=== PATIENT | female | born 1975 | race Two or more races ===

== ENCOUNTER 2025-01-26 10:26 | Outpatient (AMB) | payer MEDICAID, SELFPAY ==
--- NOTE | 2025-01-26 10:37 | AMB.GYNCLNOT ---
Vital Signs 01/26/25 10:38 Weight 62.709 kg Weight Measurement Method Standing Scale BP 123/84 Blood Pressure Source Automatic Cuff Blood Pressure Location Left Upper Arm Position Sitting Respiration 18 Pulse 78 Pulse Source Monitor Temp 97.2 F Temp Source Oral Pulse Oximetry (%) 97 Oxygen Delivery Method Room Air Allergies/Home Meds Allergies & Medications Allergies NKA* Allergy (Uncoded 01/26/25 10:39) Medication Reconciliation No Known Home Medications 03/31/19 [History Confirmed 01/26/25] Intake Visit Data Collection New Patient or Established: Established Patient (seen at [facility] within 3 years) Reason for Visit:: Fibroids Seen by Clinical Staff ONLY (RN/MA): No Window Installation Subcontractor Required: Yes Window Installation Subcontractor's name/title: VINAY SAWYER / HARVEST FIELD TICKETER Do You Feel Safe at Home: Yes Authorities Contacted: N/A PCP or OBGYN visit in last 3 months: Yes Hx Now: No Are you currently on any form of Control: No Last menstrual period: 01/23/25 Pain Present Currently: No Pain Scale Used: Galvez-Mohan/Numerical Pain scale:: 0 Smoking Status Smoking Status: Never smoker Veterinarian 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 Trouble falling or staying asleep, or sleeping too much: Not at all 4. Feeling tired or having little energy: Not at all 5. Poor appetite or overeating: Not at all 6. Feeling bad about yourself - or that you are a failure or have let yourself or your family down: Not at all 7. Trouble concentrating on things, such as reading the newspaper or watching television: Not at all 8. Moving or speaking so slowly that other people could have noticed? - Or the opposite - being so fidgety or restless that you have been moving around a lot more than usual: not at all 9. Thoughts that you would be better off or of hurting yourself in some way: Not at all If you checked off any problems, how difficult have these problems made it for you to do your work, take care of things at home, or get along with other people?: not difficult at all Source: Developed by Drs. Dom Marie, Ramandeep Tong, Isaias Clark and colleagues, with an educational ramiro from [employer]. Depression screen completed yes Social History Living Situation History Lives With: Family Housing: House Tobacco History Smoking Status: Never smoker Alcohol History Alcohol Intake: Never Domestic Abuse History Do You Feel Safe at Home: Yes Past Medical History Past Medical History Have you ever been diagnosed with any of the following: Cardiology Problems Congestive Heart Failure: No Respiratory Problems Chronic Obstructive Pulmonary Disease (COPD): No Genital/Urinary Problems Renal Disease: No Endocrine Problems Diabetes Mellitus Type 1: No Diabetes Mellitus Type 2: No History of Present Illness HPI Narrative HPI: Patient is a 49-year-old Turkish-speaking woman who presents with heavy irregular menses, severe pelvic pain, and an abnormal pelvic ultrasound. She reports experiencing back pain and pelvic pain for approximately 5 months. The patient describes having heavy periods with clots, though the exact duration of these symptoms is unclear, as she states they have been present for a long time. Ms. Ng's symptoms appear to be significantly impacting her daily life, prompting a referral from her primary care physician at [facility]. She has not reported any alleviating or aggravating factors for her symptoms. The patient denies smoking and has no history of hypertension. She reports having pre-diabetes, but no other known medical conditions. Review of systems is positive for back pain, heavy periods with clots, and pelvic pain. The patient is Turkish-speaking and has never smoked. Diagnostic Test Results and Labs: Pelvic ultrasound (11/28/2024): - Uterus: Enlarged, measuring 10.8 cm in length, 5.7 cm AP, 7.9 cm transverse - Posterior uterine leiomyoma: 2.1 cm - Endocervical cysts: 3 dilated, measuring 1.5 cm, 0.8 cm, and 0.6 cm - Endometrial stripe: Normal - Right ovary: Normal size and echogenicity, measuring 3.1 x 1.6 x 2.9 cm - Left ovary: Normal size, 0.7 cm simple cyst - Adnexa: No other cysts or abnormal masses - Cul-de-sac: No free fluid Review of Systems Review of Systems Systems Reviewed: All systems reviewed, normal except as documented Exam General Limitations: no limitations General Appearance: alert, in no apparent distress, comfortable, cooperative, healthy appearing, well developed and well groomed Head Head exam: atraumatic, normocephalic and normal inspection Chest Chest inspection: Present normal inspection and symmetric chest wall rise Abdominal Abdominal exam: Present soft and normal bowel sounds Psych Psychiatric exam: Present normal affect and normal mood Skin Skin exam: Present warm, dry, intact and normal color Assessment & Plan Diagnosis / Problem List (1) Intramural leiomyoma of uterus: Status: Acute (2) Abnormal uterine and vaginal bleeding, unspecified: Status: Acute Plan Abnormal uterine bleeding and pelvic pain: - Patient presents with heavy menorrhagia and severe pelvic pain for past 5 months. - Pelvic ultrasound (11/28/2024) showed enlarged uterus (10.8 x 5.7 x 7.9 cm) with 2.1 cm posterior uterine leiomyoma. - Three dilated endocervical cysts (1.5, 0.8, and 0.6 cm) noted. - Left ovary has 0.7 cm simple cyst. - Order blood tests to assess hormone levels. - Schedule follow-up appointment within 10 days to review blood test results. - Discuss initiating Lupron injections at follow-up appointment. - Explain Lupron will stop menstruation, alleviate symptoms, and shrink fibroids. - Discuss potential for avoiding major surgery if symptoms can be managed until menopause. - Consider stronger medications before surgical options if Lupron is ineffective. Office Procedures OB Clinic LOC & Office Proc's Nursing/Assessment Patient Status: Established Patient OB Clinic Nursing Assessment: BP Monitoring, Medication Reconciliation, Update PMH in EMR and Vital Signs OB Clinic Coordination of Care: Consent,records obtained, informed consent, Education Simp Pt/Fam, Lab and Imaging orders and Staff clarify orders Established Patient Charge Established Patient Point Assignment: 90 Established Patient Point Charge: EP Level 3 (80-115)
[2025-01-26 10:38] VITALS: BP 123/84; PULSE 78; RESP 18; TEMP 36.2; O2SAT 97
== END 2025-01-26 10:51 | disposition home or self-care (01) ==
LOC: HODSOBC 10:26
PROVIDERS: PCP Obstetrics & Gynecology; Referring Provider Obstetrics & Gynecology; Supervising Provider Obstetrics & Gynecology; Visit Provider Obstetrics & Gynecology
DX: D25.1 Intramural leiomyoma of uterus (principal); N93.9 Abnormal uterine and vaginal bleeding, unspecified
CPT/HCPCS: 99213; G0463

== ENCOUNTER 2025-02-17 08:45 | Outpatient (AMB) | payer MEDICAID, SELFPAY ==
[2025-02-17 09:28] VITALS: BP 117/76; PULSE 74; RESP 18; TEMP 36.1; O2SAT 98
--- NOTE | 2025-02-17 09:28 | AMB.GYNCLNOT ---
Vital Signs 02/17/25 09:28 Weight 63.276 kg Weight Measurement Method Standing Scale BP 117/76 Blood Pressure Source Automatic Cuff Blood Pressure Location Left Upper Arm Position Sitting Respiration 18 Pulse 74 Pulse Source Monitor Temp 96.9 F Temp Source Oral Pulse Oximetry (%) 98 Oxygen Delivery Method Room Air Allergies/Home Meds Allergies & Medications Allergies NKA* Allergy (Uncoded 02/17/25 09:29) Medication Reconciliation No Known Home Medications 03/31/19 [History Confirmed 02/17/25] Intake Visit Data Collection New Patient or Established: Established Patient (seen at [facility] within 3 years) Reason for Visit:: Lab Results Seen by Clinical Staff ONLY (RN/MA): No Furniture Salesperson Required: Yes Furniture Salesperson's name/title: VINAY SAWYER / ROBOTIC MAINTENANCE TECHNICIAN Do You Feel Safe at Home: Yes Authorities Contacted: N/A PCP or OBGYN visit in last 3 months: Yes Date of Last PCP or OBGYN visit: 01/26/25 Hx Now: No Are you currently on any form of Control: No Pain Present Currently: No Pain Scale Used: Galvez-Mohan/Numerical Pain scale:: 0 Smoking Status Smoking Status: Never smoker 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 1. Little interest or pleasure in doing things: not at all 2. Feeling down, depressed, or hopeless: not at all Total score: 0 PHQ-9 3. Trouble falling or staying asleep, or sleeping too much: Not at all 4. Feeling tired or having little energy: Not at all 5. Poor appetite or overeating: Not at all 6. Feeling bad about yourself - or that you are a failure or have let yourself or your family down: Not at all 7. Trouble concentrating on things, such as reading the newspaper or watching television: Not at all 8. Moving or speaking so slowly that other people could have noticed? - Or the opposite - being so fidgety or restless that you have been moving around a lot more than usual: not at all 9. Thoughts that you would be better off or of hurting yourself in some way: Not at all Total score: 0 If you checked off any problems, how difficult have these problems made it for you to do your work, take care of things at home, or get along with other people?: not difficult at all Source: Developed by Drs. Dom Marie, Ramandeep Tong, Isaias Clrak and colleagues, with an educational ramiro from [employer]. Depression screen completed yes Social History Living Situation History Marital Status: Lives With: Family Housing: House Tobacco History Smoking Status: Never smoker Second Hand Smoke Exposure: No Alcohol History Alcohol Intake: Never Domestic Abuse History Do You Feel Safe at Home: Yes Past Medical History Past Medical History Have you ever been diagnosed with any of the following: Cardiology Problems Congestive Heart Failure: No Respiratory Problems Chronic Obstructive Pulmonary Disease (COPD): No Genital/Urinary Problems Renal Disease: No Endocrine Problems Diabetes Mellitus Type 1: No Diabetes Mellitus Type 2: No History of Present Illness HPI Narrative Patient left the office stating that she was going to [facility] in [place] to obtain her lab results, she never returned to be seen Assessment & Plan Diagnosis / Problem List (1) Procedure and treatment not carried out due to patient leaving prior to being seen by health care provider: Status: Acute Office Procedures OB Clinic LOC & Office Proc's Nursing/Assessment Patient Status: Established Patient OB Clinic Nursing Assessment: BP Monitoring, Medication Reconciliation, Update PMH in EMR and Vital Signs OB Clinic Coordination of Care: Consent,records obtained, informed consent, Education Simp Pt/Fam, Results/Orders obtained and Staff clarify orders Established Patient Charge Established Patient Point Assignment: 80
== END 2025-02-17 10:47 | disposition home or self-care (01) ==
LOC: HODSOBC 08:45
PROVIDERS: PCP Obstetrics & Gynecology; Referring Provider Obstetrics & Gynecology; Supervising Provider Obstetrics & Gynecology; Visit Provider Obstetrics & Gynecology
DX: Z76.89 Persons encountering health services in other specified circumstances (principal)
CPT/HCPCS: 99213; G0463

== ENCOUNTER 2025-03-03 08:04 | Outpatient (AMB) | payer MEDICAID, SELFPAY ==
--- NOTE | 2025-03-03 08:32 | AMB.GYNCLNOT ---
Vital Signs 03/03/25 08:35 Weight 63 kg Weight Measurement Method Standing Scale BP 120/80 Blood Pressure Source Automatic Cuff Blood Pressure Location Left Upper Arm Position Right Lateral Respiration 18 Pulse 81 Pulse Source Monitor Temp 97.2 F Temp Source Oral Pulse Oximetry (%) 96 Oxygen Delivery Method Room Air Allergies/Home Meds Allergies & Medications Allergies NKA* Allergy (Uncoded 03/03/25 08:36) Medication Reconciliation No Known Home Medications 03/31/19 [History Confirmed 03/03/25] Intake Visit Data Collection New Patient or Established: Established Patient (seen at [facility] within 3 years) Reason for Visit:: Heavy and irregular bleeding, anxiety Seen by Clinical Staff ONLY (RN/MA): No Senior It Recruiter Required: Yes Senior It Recruiter's name/title: VINAY SMALL MA Do You Feel Safe at Home: Yes Authorities Contacted: N/A PCP or OBGYN visit in last 3 months: Yes Date of Last PCP or OBGYN visit: 02/17/25 Hx Now: Yes Are you currently on any form of Control: No Pain Present Currently: No Pain Scale Used: Galvez-Mohan/Numerical Pain scale:: 0 Smoking Status Smoking Status: Never smoker 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 1. Little interest or pleasure in doing things: not at all 2. Feeling down, depressed, or hopeless: not at all Total score: 0 PHQ-9 3. Trouble falling or staying asleep, or sleeping too much: Not at all 4. Feeling tired or having little energy: Not at all 5. Poor appetite or overeating: Not at all 6. Feeling bad about yourself - or that you are a failure or have let yourself or your family down: Not at all 7. Trouble concentrating on things, such as reading the newspaper or watching television: Not at all 8. Moving or speaking so slowly that other people could have noticed? - Or the opposite - being so fidgety or restless that you have been moving around a lot more than usual: not at all 9. Thoughts that you would be better off or of hurting yourself in some way: Not at all Total score: 0 If you checked off any problems, how difficult have these problems made it for you to do your work, take care of things at home, or get along with other people?: not difficult at all Source: Developed by Drs. Dom Marie, Ramandeep Tong, Isaias Clark and colleagues, with an educational ramiro from [employer]. Depression screen completed yes Social History Living Situation History Lives With: Family Housing: House Tobacco History Smoking Status: Never smoker Second Hand Smoke Exposure: No Alcohol History Alcohol Intake: Never Domestic Abuse History Do You Feel Safe at Home: Yes History of Present Illness HPI Narrative Lillian Ng, a 49-year-old woman, presents for follow-up regarding heavy and irregular menstrual bleeding. She was previously evaluated with an ultrasound that showed small, benign cysts in the cervix. Recent blood tests were performed to assess her menopausal status. The patient continues to experience heavy and irregular menstrual bleeding. Her hormone levels indicate that she is not yet in menopause and her body is still producing hormones consistent with regular menstrual cycling. The patient also reports experiencing anxiety, for which she is seeking treatment. The impact of her symptoms on daily functioning and the specific characteristics of her menstrual bleeding (such as frequency, duration, and associated pain) were not discussed in detail during this visit. The patient's adherence to any previously prescribed treatments was also not mentioned. Obstetric History - GTPAL: G0 T0 L0 Medical History - Anxiety Review of Systems Genitourinary: Positive for heavy and irregular bleeding. Psychiatric: Positive for anxiety. Exam General General Appearance: alert, in no apparent distress and healthy appearing Head Head exam: atraumatic Neck Neck exam: Present normal inspection and trachea midline Chest Chest inspection: Present normal inspection and symmetric chest wall rise External exam: Present normal external exam; Absent tenderness Neuro Neurological exam: Present oriented X3 Psych Psychiatric exam: Present normal affect and normal mood Office Procedures OB Clinic LOC & Office Proc's Nursing/Assessment Patient Status: Established Patient OB Clinic Nursing Assessment: Medication Reconciliation, Update PMH in EMR and Vital Signs OB Clinic Coordination of Care: Education Complex Pt/Fam, Consent,records obtained, informed consent, Lab and Imaging orders, Results/Orders obtained and Staff clarify orders Special Needs: Language special needs Established Patient Charge Established Patient Point Assignment: 85 Established Patient Point Charge: EP Level 3 (80-115) Assessment & Plan Diagnosis / Problem List (1) Abnormal uterine and vaginal bleeding, unspecified: Status: Acute (2) Intramural leiomyoma of uterus: Status: Acute Plan Lillian Ng, 49-year-old female presenting with heavy and irregular bleeding, with small benign cysts in the cervix found on ultrasound. Abnormal Uterine Bleeding Assessment: Patient presents with heavy and irregular bleeding. Recent ultrasound showed small benign cysts in the cervix. Blood tests indicate that the patient is not in menopause, as her body is still producing hormones consistent with regular menstrual cycling. The bleeding is significant enough to warrant intervention. Given the patient's age (49) and the typical age of menopause onset (around 50), treatment options are being considered to manage symptoms until natural menopause occurs. Plan: - Discussed treatment options in order of recommendation: 1. Monthly Lupron injections to block hormones and stop menstruation 2. 5-year IUD insertion 3. Hysterectomy (laparoscopic approach) - Provided patient education on Lupron injection, including potential side effects such as weight gain and sleepiness - Informed patient about laparoscopic hysterectomy procedure: 3 small incisions, removal through vagina - Recommended starting with Lupron injections, considering surgery if bleeding breaks through - Advised patient to review provided information and return in one week to make treatment decision - Will initiate insurance approval process for chosen treatment option Anxiety Assessment: Patient reports anxiety symptoms requiring medication management. Plan: - Referred patient back to primary care physician (Layne) for anxiety medication management
[2025-03-03 08:35] VITALS: BP 120/80; PULSE 81; RESP 18; TEMP 36.2; O2SAT 96
== END 2025-03-03 09:13 | disposition home or self-care (01) ==
PROVIDERS: PCP Obstetrics & Gynecology; Referring Provider Obstetrics & Gynecology; Supervising Provider Obstetrics & Gynecology; Visit Provider Obstetrics & Gynecology
DX: D25.1 Intramural leiomyoma of uterus (principal); N93.9 Abnormal uterine and vaginal bleeding, unspecified; F41.9 Anxiety disorder, unspecified
CPT/HCPCS: 99213; G0463

== ENCOUNTER → 2025-05-28 | Outpatient (CLI) | payer MEDICAID, SELFPAY ==
--- NOTE | 2025-05-28 14:09 | XR_ITS ---
Examination: Transvaginal ultrasound of the pelvis, complete Technique: Transvaginal sonographic images pelvis performed using burciaga scale imaging Exam date and time: May 28, 2025 1500 hours INDICATIONS: Vaginal bleeding one year FINDINGS: Uterus 10.2 cm Uterine fundal mass 11 x 15 mm, uterine body mass 30 x 32 mm Lower uterine segment mass 14 x 14 mm Endometrial stripe 15 mm Right ovary 3.0 cm arterial flow Left ovary 2.1 cm arterial flow IMPRESSION: Uterine masses, likely fibroid degeneration, 6 month follow-up transvaginal pelvic sonography recommended
== END | disposition home or self-care (01) ==
PROVIDERS: PCP Registered Nurse Community Health; Referring Provider Registered Nurse Community Health; Visit Provider Registered Nurse Community Health
DX: R19.00 Intra-abdominal and pelvic swelling, mass and lump, unspecified site (principal)
CPT/HCPCS: 76830

== ENCOUNTER 2025-06-21 04:19 | Emergency (ER) | payer MEDICAID, SELFPAY ==
[2025-06-21 04:31] VITALS: BP 133/88; PULSE 75; RESP 18; TEMP 36.7; O2SAT 100
--- NOTE | 2025-06-21 04:33 | XR_ITS ---
Examination: CT abdomen and pelvis without contrast. Coronal 3-D reconstructions. Sagittal 2-D reconstructions. Date and time of exam:June 21, 2025, 0444 hrs. Indications: Lower abdominal pain pain with urination today. CTDI: vol (mGy): 11.01 DLP: (mGycm): 362 Technique: Axial images of the abdomen have been obtained, 3 mm slice thickness Intravenous contrast material has not been administered. Low dose protocols were performed. One or more of the following dose reduction techniques were used; automated exposure control, adjustment of the mA and/or KV according to patient size, use of iterative reconstruction technique. Findings: No focal liver or splenic lesions No gallstones No pancreatic or adrenal mass. No renal or ureteral calculi, no hydronephrosis. Aorta normal size. Normal appendix No bowel obstruction No diverticulitis No pelvic mass Bladder intact The osseous structures are intact Impression: No acute process in the abdomen or pelvis
--- NOTE | 2025-06-21 04:34 | PD.EDRME ---
Rapid Medical Screening Exam RME Arrival date/time: 06/21/25 04:19 This is a case of 49-year-old female with no medical history came in in the emergency room due to abdominal pain radiating to the flank with nausea vomiting for 2 days with dysuria persistence of the symptoms thus patient decided to start consult here in the emergency room Chief Complaint: Abdominal Pain Time Seen by Provider: 06/21/25 04:33 Vital signs: Vital Signs Temperature 98.0 F 06/21/25 04:31 Pulse Rate 75 06/21/25 04:31 Respiratory Rate 18 06/21/25 04:31 Blood Pressure 133/88 H 06/21/25 04:31 Pulse Oximetry (%) 100 06/21/25 04:31 Oxygen Delivery Method Room Air 06/21/25 04:31
[2025-06-21 04:53] LABS: Basophils # (Auto) 0.0 Thou/mm3 (0.0-0.2); Basophils % (Auto) 0 % (0-2.5); Eosinophils # (Auto) 0.1 Thou/mm3 (0.0-0.5); Eosinophils % (Auto) 1 % (0-10); Hematocrit 39.0 % (36.0-46.0); Hemoglobin 12.9 g/dL (12.0-16.0); Immature Granulocytes Auto 0.01 Thou/mm3 (0.00-0.00); Lymphocytes # (Auto) 3.8 Thou/mm3 (1.0-4.8); Lymphocytes % (Auto) 57 % (10-50); Mean Corpuscular HGB Conc 33.1 g/dl (31.0-37.0); Mean Corpuscular Hemoglobin 30.4 pg (25.0-35.0); Mean Corpuscular Volume 92 fL (80-100); Monocytes # (Auto) 0.5 Thou/mm3 (0.0-0.8); Monocytes % (Auto) 8 % (0-12); Neutrophils # (Auto) 2.2 Thou/mm3 (1.8-7.7); Neutrophils % (Auto) 33 % (37-80); Nucleated Red Blood Cell # 0.00 Thou/mm3 (0.00-0.00); Nucleated Red Blood Cell % 0 /100 WBC (0); Platelet Count 220 Thou/mm3 (140-440); RDW Standard Deviation 40.5 fL (36.4-46.3); Red Blood Count 4.25 Miln/mm3 (4.00-5.20); White Blood Count 6.6 Thou/mm3 (3.6-11.0)
[2025-06-21 04:58] LABS: Collection Type, Urine Clean Catch
[2025-06-21 04:59] LABS: HCG Qualitative,Urine Negative
[2025-06-21 05:02] LABS: Bacteria,Urine Rare; Bilirubin,Urine Negative (Negative); Blood,Urine Negative (Negative); Clarity,Urine Clear (Clear/Hazy); Color,Urine Colorless (Lt Yel-Yel); Glucose, Urine Negative (Negative); Ketones,Urine Negative (Negative); Leukocyte Esterase,Urine Positive (Negative); Nitrite,Urine Negative (Negative); PH,Urine 7.5 (5.0-7.0); Protein,Urine Negative (Neg - Trace); RBC,Urine 1 /hpf (0-3); Specific Gravity,Urine 1.008 (1.001-1.035); Squamous Epithelial Cell,Urine 2 /hpf (0-5); Urobilinogen,Urine Negative mg/dL (0.0-1.0); WBC,Urine 4 /hpf (0-5)
[2025-06-21 05:13] LABS: Alanine Aminotransferase 24 U/L (10-49); Albumin, Serum 4.7 gm/dL (3.5-5.0); Albumin/Globulin Ratio 1.7 (1.2-2.2); Alkaline Phosphatase 59 U/L (46-116); Anion Gap 11 (7-16); Aspartate Amino Transferase 27 U/L (0-34); BUN/Creatinine Ratio 14 Ratio (12-20); Bilirubin,Total 0.6 mg/dL (0.3-1.2); Blood Urea Nitrogen 11 mg/dL (9-23); Calcium 10.2 mg/dL (8.3-10.6); Calcium (Corrected) 10.2 mg/dL (8.5-10.1); Carbon Dioxide 26.3 mMol/L (20.0-31.0); Chloride 104 mMol/L (98-107); Creatinine (Component) 0.8 mg/dL (0.6-1.3); Globulin 2.7 gm/dL (2.3-3.5); Glucose 101 mg/dL (74-106); Osmolality,Calculated 280 (275-295); Potassium 4.0 mMol/L (3.4-5.1); Sodium 141 mMol/L (136-145); Total Protein 7.4 gm/dL (5.7-8.2); eGFR > 60 See Note
[2025-06-21 05:19] VITALS: BP 119/79; PULSE 60; RESP 20; TEMP 36.7; O2SAT 100
[2025-06-21 05:20] VITALS: BMI 26.5
--- NOTE | 2025-06-21 05:26 | PRELIM_ITS ---
CT scan of the abdomen and pelvis without intravenous contrast (axial sections with sagittal and coronal reformats) June 21, 2025 0444 hours Clinical History: Abdominal pain. Comparison: No prior study is available for comparison. Findings: The lung bases are clear. The liver, gallbladder, spleen, pancreas, adrenal glands and kidneys are unremarkable. The urinary bladder is decompressed, limiting evaluation. There is no adnexal cyst or mass. The appendix is not visualized; however, there is no evidence of inflammatory process in the right lower quadrant to suggest appendicitis. Bowel caliber is normal. The abdominal wall is unremarkable. No urinary tract stone or obstruction is identified. No acute osseous process. Impression: No acute process of the abdomen or pelvis on this noncontrast exam. Report Electronically Signed By: Jeremie Smith 06/21/2025 5:25:51 AM [EST]
--- NOTE | 2025-06-21 05:35 | EDNOTE_ITS ---
ED Abdominal Pain RME/HPI General Chief Complaint: Abdominal Pain Stated complaint: LOWER BACK AND ABD PAIN, PAIN IN URINATION Time seen by provider: 06/21/25 04:33 Arrival date/time: 06/21/25 04:19 RME / HPI RME / HPI narrative: 06/21/25 04:19 This is a case of 49-year-old female with no medical history came in in the emergency room due to abdominal pain radiating to the flank with nausea vomiting for 2 days with dysuria persistence of the symptoms thus patient decided to start consult here in the emergency room 49-year-old female with bilateral lower pelvic pain with possible dysuria for the last 2 days. Some mild low back pain as well. No nausea vomiting fevers or chills. No prior episodes. Patient has no significant past medical history. Related Data Home Medications ?Medication ?Instructions ?Recorded ?Confirmed clonazepam 2 mg tablet 2 mg PO HS 06/19/25 06/19/25 Allergies Allergy/AdvReac Type Severity Reaction Status Date / Time No Known Allergies Allergy Verified 06/21/25 04:21 Review of Systems Review of Systems Systems Reviewed: All systems reviewed, normal except as documented ED Exam Narrative Physical exam: Generally patient is alert oriented x 3 in no obvious distress, heart regular rate and rhythm, lungs clear to auscultation equal bilaterally, musculoskeletal exam showed no costovertebral angle tenderness, abdominal exam showed lower adnexal tenderness to palpation bilaterally. Skin is warm pale and dry. Course Quality Measures none Orders Category Date Time Status CT abdomen pelvis wo con Stat Exams 06/21/25 04:33 Taken CBC Stat Lab 06/21/25 04:48 Completed Comprehensive Metabolic Panel Stat Lab 06/21/25 04:48 Results HCG Qualitative,Urine Stat Lab 06/21/25 04:53 Completed Lipase Stat Lab 06/21/25 04:48 Results Urinalysis Stat Lab 06/21/25 04:53 Completed Vital Signs Vital signs: Vital Signs Temperature 98.0 F 06/21/25 04:31 Pulse Rate 75 06/21/25 04:31 Respiratory Rate 18 06/21/25 04:31 Blood Pressure 133/88 H 06/21/25 04:31 Pulse Oximetry (%) 100 06/21/25 04:31 Oxygen Delivery Method Room Air 06/21/25 04:31 Abdominal Pain MDM MDM Narrative MDM Narrative:: Differential diagnosis, ovarian cyst, UTI, diverticulitis, intra-abdominal infec tion I interpreted all labs. There is no leukocytosis. LFTs are normal. Renal function is normal. Urine is not infected. is negative. Patient underwent a CT scan of the abdomen pelvis with IV contrast which showed no evidence of acute abnormality. Patient is stable for discharge. She may take Tylenol and ibuprofen for pain and follow-up with her doctor as needed for further treatment and evaluation. Patient data External records reviewed:: [facility] previous records Clinical information provided by:: patient Social determinants that could affect healthcare access:: none Patient has the following chronic illnesses:: None How is presenting disease/condition affected by chronic disease/condition?: no chronic disease Evaluation data The following diagnostics were reviewed and interpreted by me:: other (specify) Lab and/or radiology exams considered but not ordered:: None Interpretation Summary: None Medications / Prescriptions Medications or Prescriptions considered but not ordered:: None Medication administrations:: None Consultations Consultation(s) initiated? (list below): No Diagnosis Differential diagnosis abdominal pain: abdominal pain, acute appendicitis, calculus of kidney, constipation, diverticulitis and endometriosis Most likely diagnosis given after review of the tests above:: None Admission Indicated Admission indicated?: not indicated Admission Request Was there a request for admission?: No Disposition Plan Disposition Plan: Discharge Discharge Attestation Discharge Attestation: The patient and all family members were given an opportunity to ask questions and understood the discharge instructions. Discharge instructions specifically effects, indications for sooner follow up or return to the emergency department, and the expected course of current diagnosis. Patient condition: Stable Discharge Plan Plan Patient Disposition: HOME (Self Care) Prescriptions/Referrals Prescriptions/Med Rec: No Action clonazepam 2 mg tablet 2 mg PO HS Referrals: Millie Mckinnon FNP [Primary Care Provider] - In 1 week Problem List Clinical Impression: Pelvic pain Patient/Caregiver Discharge Instructions Education Materials: ED Pelvic Pain, Unknown Cause Additional Instructions: You may take Tylenol and/or ibuprofen as needed for pain. Follow-up with your doctor for further treatment and evaluation. Print Language: Surinamese Stand Alone Forms: [employer] Award Info., Patient Portal Info Letter
[2025-06-21 05:44] VITALS: BP 119/79; PULSE 78; RESP 18; TEMP 36.6; O2SAT 98
[2025-06-21 22:04] LABS: Lipase 41 U/L (12-53)
== END 2025-06-21 05:47 | disposition home or self-care (01) ==
PROVIDERS: Nurse Practitioner Family; Emergency Provider Emergency Medicine; PCP Registered Nurse Community Health
DX: R10.9 Unspecified abdominal pain (principal); R10.2 Pelvic and perineal pain; R11.2 Nausea with vomiting, unspecified; R30.0 Dysuria
CPT/HCPCS: 36415; 74176; 80053; 81001; 81025; 83690; 85025; 99283

== ENCOUNTER 2025-06-24 09:49 | Outpatient (AMB) | payer MEDICAID, SELFPAY ==
[2025-06-24 10:22] VITALS: BP 120/70; PULSE 79; RESP 16; TEMP 36.2; O2SAT 98; BMI 26.5
--- NOTE | 2025-06-24 10:22 | AMB.GYNCLNOT ---
Vital Signs 06/24/25 10:22 Height 1.52 m Height Method Stated Weight 61.348 kg Weight Measurement Method Standing Scale BMI 26.5 BP 120/70 Blood Pressure Source Automatic Cuff Blood Pressure Location Left Upper Arm Position Sitting Respiration 16 Pulse 79 Pulse Source Monitor Temp 97.2 F Temp Source Oral Pulse Oximetry (%) 98 Oxygen Delivery Method Room Air Allergies/Home Meds Allergies & Medications Allergies No Known Allergies Allergy (Verified 06/24/25 10:23) Medication Reconciliation clonazepam 2 mg tablet 2 mg PO HS 06/19/25 [History Confirmed 06/24/25] Intake Visit Data Collection New Patient or Established: Established Patient (seen at [facility] within 3 years) Reason for Visit:: OBC Seen by Clinical Staff ONLY (RN/MA): No Field Sales Specialist Required: No Do You Feel Safe at Home: Yes Authorities Contacted: N/A PCP or OBGYN visit in last 3 months: Yes Date of Last PCP or OBGYN visit: 06/21/25 Hx Now: No Are you currently on any form of Control: No Last menstrual period: 05/31/25 Pain Present Currently: No Pain Scale Used: Galvez-Mohan/Numerical Pain scale:: 0 Smoking Status Smoking Status: Never smoker 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 Menstrual regularity: regular Flow: normal Monthly: Yes Age at menarche: 16 Menopausal: No Currently sexually active: No INSPECTOR PURCHASED PARTS: Past Medical History Past Medical History: No Hx Neurological Disorders, No Hx Cardiac Disorders, No Hx Cancer, No Hx Blood Disorders, No Hx Gastrointestinal Disorders, No Hx Renal Disease, No Hx Diabetes Mellitus Type 1 and No Hx Diabetes Mellitus Type 2 Questionnaires Covid-19 Vaccine Questionnaire Has patient been vacinated for Covid-19 Have you been vacinated for Covid-19: Yes PHQ-9 PHQ-2 Over the last 2 weeks, how often have you been bothered by any of the following problems? 1. Little interest or pleasure in doing things: not at all 2. Feeling down, depressed, or hopeless: not at all Total score: 0 PHQ-9 3. Trouble falling or staying asleep, or sleeping too much: Not at all 4. Feeling tired or having little energy: Not at all 5. Poor appetite or overeating: Not at all 6. Feeling bad about yourself - or that you are a failure or have let yourself or your family down: Not at all 7. Trouble concentrating on things, such as reading the newspaper or watching television: Not at all 8. Moving or speaking so slowly that other people could have noticed? - Or the opposite - being so fidgety or restless that you have been moving around a lot more than usual: not at all 9. Thoughts that you would be better off or of hurting yourself in some way: Not at all Total score: 0 If you checked off any problems, how difficult have these problems made it for you to do your work, take care of things at home, or get along with other people?: not difficult at all Source: Developed by Drs. Dom Marie, Ramandeep Tong, Isaias Clark and colleagues, with an educational ramiro from [employer]. Depression screen completed yes Social History Living Situation History Marital Status: Lives With: Family Housing: House Tobacco History Smoking Status: Never smoker Second Hand Smoke Exposure: No Alcohol History Alcohol Intake: Never Domestic Abuse History Do You Feel Safe at Home: Yes History of Present Illness HPI Narrative Lillian Jerome presents for a preoperative visit ahead of her scheduled laparoscopic-assisted vaginal hysterectomy (LAVH) on July 02, 2025. She has a history of heavy and irregular uterine bleeding, which was initially evaluated in February. The patient was previously seen in February for heavy and irregular uterine bleeding. At that time, an ultrasound revealed small benign cysts in the cervix, an enlarged uterus measuring 10.8 centimeters, a posterior leiomyoma, and endocervical cysts. After discussing treatment options, including monthly Lupron injections, a 5-year Mirena IUD, and hysterectomy, the patient initially opted to start with Lupron injections. However, she experienced breakthrough bleeding and subsequently decided to proceed with a hysterectomy. Lillian has undergone additional imaging studies since her last visit, including an ultrasound in May and a CT scan in June. The May ultrasound showed findings similar to the previous one, with multiple small fibroids measuring 1-[address] scan did not visualize the fibroids. The patient appears to understand the surgical procedure, including the use of three small incisions and the vaginal removal of the uterus. She has inquired about her 's ability to take time off work to care for her during her recovery period. The patient has been taking monthly Lupron injections but experienced breakthrough bleeding. She is a 49-year-old female who is and lives with her spouse. Her works and will take time off to care for her post-surgery. ROS: Genitourinary: Positive for heavy and irregular uterine bleeding. Diagnostic Test Results and Labs: - Previous ultrasound (date not specified): Uterus enlarged to 10.8 cm, posterior leiomyoma present, endocervical cysts: 2.1 cm, and 3 dilated measuring 1.5 cm, 0.8 cm, and 0.6 cm, endometrial stripe normal, right ovary normal, left ovary: 0.7 cm simple cyst - Ultrasound (May 2025): Multiple fibroids noted, all small (1-3 cm) - CT scan (June 2025): Fibroids not visualized Exam General General Appearance: alert, in no apparent distress and healthy appearing Head Head exam: atraumatic Neck Neck exam: Present normal inspection and trachea midline Chest Chest inspection: Present normal inspection and symmetric chest wall rise External exam: Present normal external exam; Absent tenderness Neuro Neurological exam: Present oriented X3 Psych Psychiatric exam: Present normal affect and normal mood Office Procedures OB Clinic LOC & Office Proc's Nursing/Assessment Patient Status: Established Patient OB Clinic Nursing Assessment: Medication Reconciliation, Update PMH in EMR and Vital Signs OB Clinic Coordination of Care: Education Complex Pt/Fam, Consent,records obtained, informed consent, Lab and Imaging orders and Staff clarify orders Established Patient Charge Established Patient Point Assignment: 80 Established Patient Point Charge: EP Level 3 (80-115) Assessment & Plan Diagnosis / Problem List (1) Abnormal uterine and vaginal bleeding, unspecified: Status: Acute (2) Intramural leiomyoma of uterus: Status: Acute Plan Heavy and irregular uterine bleeding with uterine fibroids: - 49-year-old female with enlarged uterus (10.8 cm) and multiple small fibroids (1-3 cm). - Symptoms of heavy and irregular uterine bleeding. - Contributing factors include posterior leiomyoma identified on ultrasound. Plan: - Proceed with laparoscopic-assisted vaginal hysterectomy (LAVH) on 07/02/2025. - Informed consent obtained for surgical approach with 3 small abdominal incisions and vaginal removal of uterus. - Educate patient on recovery expectations and activity modifications: ? Overnight hospital stay required. ? 4-5 days of bed rest recommended. ? Gentle activity permitted after 5 days. - Discuss potential complications: ? 5% chance of conversion to open procedure ? Standard surgical risks reviewed - Released for more strenuous activity after 2 weeks with full vaginal healing expected in 1 month. - Provide necessary documentation for patient's to receive up to one month of paid leave for caretaking.
== END 2025-06-24 10:37 | disposition home or self-care (01) ==
LOC: HODSOBC 09:49
PROVIDERS: Supervising Provider Obstetrics & Gynecology; Visit Provider Obstetrics & Gynecology
DX: D25.1 Intramural leiomyoma of uterus (principal); N93.9 Abnormal uterine and vaginal bleeding, unspecified
CPT/HCPCS: 99213; G0463

== ENCOUNTER 2025-07-02 14:20 | Observation (INO) | payer MEDICAID, SELFPAY ==
[2025-06-19 07:42] VITALS: BMI 26.5
[2025-06-19 08:18] LABS: Basophils # (Auto) 0.0 Thou/mm3 (0.0-0.2); Basophils % (Auto) 1 % (0-2.5); Eosinophils # (Auto) 0.1 Thou/mm3 (0.0-0.5); Eosinophils % (Auto) 2 % (0-10); Hematocrit 37.8 % (36.0-46.0); Hemoglobin 12.6 g/dL (12.0-16.0); Immature Granulocytes Auto 0.03 Thou/mm3 (0.00-0.00); Lymphocytes # (Auto) 2.6 Thou/mm3 (1.0-4.8); Lymphocytes % (Auto) 49 % (10-50); Mean Corpuscular HGB Conc 33.3 g/dl (31.0-37.0); Mean Corpuscular Hemoglobin 31.0 pg (25.0-35.0); Mean Corpuscular Volume 93 fL (80-100); Monocytes # (Auto) 0.4 Thou/mm3 (0.0-0.8); Monocytes % (Auto) 8 % (0-12); Neutrophils # (Auto) 2.1 Thou/mm3 (1.8-7.7); Neutrophils % (Auto) 40 % (37-80); Nucleated Red Blood Cell # 0.00 Thou/mm3 (0.00-0.00); Platelet Count 228 Thou/mm3 (140-440); RDW Standard Deviation 41.4 fL (36.4-46.3); Red Blood Count 4.07 Miln/mm3 (4.00-5.20); White Blood Count 5.3 Thou/mm3 (3.6-11.0)
[2025-06-19 08:19] LABS: Nucleated Red Blood Cell % 0 /100 WBC (0)
[2025-06-19 08:51] LABS: Alanine Aminotransferase 33 U/L (10-49); Albumin, Serum 4.5 gm/dL (3.5-5.0); Albumin/Globulin Ratio 2.0 (1.2-2.2); Alkaline Phosphatase 59 U/L (46-116); Anion Gap 11 (7-16); Aspartate Amino Transferase 37 U/L (0-34); BUN/Creatinine Ratio 16 Ratio (12-20); Bilirubin,Total 0.6 mg/dL (0.3-1.2); Blood Urea Nitrogen 13 mg/dL (9-23); Calcium 9.9 mg/dL (8.3-10.6); Calcium (Corrected) 9.9 mg/dL (8.5-10.1); Carbon Dioxide 25.4 mMol/L (20.0-31.0); Chloride 107 mMol/L (98-107); Creatinine (Component) 0.8 mg/dL (0.6-1.3); Estimated Creatinine Clearance 70.5 mL/min (>60); Globulin 2.3 gm/dL (2.3-3.5); Glucose 101 mg/dL (74-106); Osmolality,Calculated 285 (275-295); Potassium 3.9 mMol/L (3.4-5.1); Sodium 143 mMol/L (136-145); Total Protein 6.8 gm/dL (5.7-8.2); eGFR > 60 See Note
[2025-06-19 09:04] LABS: HCG,Qualitative Serum Negative
--- NOTE | 2025-07-01 10:15 | SUR.PREOP ---
Labs from 06/19/[address] Jewell and Mario, Hcg to be repeated on arrival to surgery per Dr Martin.
--- NOTE | 2025-07-01 11:21 | SUR.PREOP ---
Pt notified to come in at 0700 tomorrow for surgery.
[2025-07-02] VITALS (19 sets, daily range): BP systolic 95–119; BP diastolic 56–75; PULSE 55–93; RESP 10–18; TEMP 36.1–36.7; O2SAT 99–100; BMI 21.7
[2025-07-02 07:53] LABS: HCG Qualitative,Urine Negative
--- NOTE | 2025-07-02 11:09 | PD.GYNPROC ---
Operative Note - SHOWROOM SALESPERSON Procedure Date of procedure: 07/02/25 Procedure Performed: Total laparoscopic hysterectomy and bilateral salpingectomy Indication: 49-year-old with menorrhagia unresponsive to medical treatment Anesthesia type: General Procedure description: Informed consent was obtained, and the patient was taken to the operating room. Identity was confirmed using two patient identifiers. General anesthesia was administered, and the patient was positioned in dorsal lithotomy position. The abdomen and perineum were prepped and draped in the usual sterile fashion. A Gama catheter was placed for continuous drainage. A surgical timeout was completed. A 5 mm infraumbilical port was placed under direct visualization and pneumoperitoneum was established. Two additional 5 mm accessory ports were placed laterally under direct visualization for operative instrumentation. A total of three 5 mm ports were used for the procedure. Laparoscopic survey of the abdomen and pelvis was performed. Dissection was initiated on the patient?s right side. The fallopian tube was first dissected free and divided separately, followed by the round ligament, and then the utero-ovarian ligament. Dissection was carried down along the lateral aspect of the uterus toward the uterine vasculature. Some bleeding was encountered at the level of the right uterine artery, which was controlled with additional energy application. The bladder flap was then developed, and the bladder was reflected inferiorly to expose the lower uterine segment and anterior cervix. Dissection was then carried out on the left side in the same stepwise fashion?beginning with the fallopian tube, followed by the round ligament and utero-ovarian ligament?carrying the dissection down to seal the left uterine vessels. Once all vascular pedicles were secured, the colpotomy ring was palpated and colpotomy was initiated from the posterior aspect using energy device and carried circumferentially along the ring. The uterus was completely detached and delivered vaginally without difficulty. The vaginal cuff was closed from below using 0-Vicryl suture placed in a running locked fashion. Hemostasis was confirmed throughout the operative field. The abdomen and pelvis were copiously irrigated, and all fluid and debris were suctioned out. No active bleeding was noted. Pneumoperitoneum was desufflated, and all port sites were closed with 4-0 Monocryl in a subcuticular fashion. Dermabond was applied to all incisions. The patient was extubated and transferred to recovery in stable and awake condition. She tolerated the procedure well. All instrument, sponge, and lap counts were correct ?2. Estimated blood loss (ml): 150 Complications: none Surgical staff Operation Date: 07/02/25 09:15 Case Staff HVAC MAINTENANCE TECHNICIAN: Harvinder Estrada RNmotor and generator assembler: Parvin Gonzalez Diagnosis Discharge Diagnosis (1) Abnormal uterine and vaginal bleeding, unspecified: Status: Acute (2) Intramural leiomyoma of uterus: Status: Acute Problem List Completed Was Problem List Reviewed/Reconciled?: Yes
--- NOTE | 2025-07-02 11:21 | SUR.PHASEI ---
pt received from OR in recovery bay 5. pt asleep but responds to voice, breathing unlabored on oxymask 8l. v/s stable. pt dressing to abd dermabond x3 cdi. report received from Tomas PAZ and Zabrina YOUNGBLOOD.
[2025-07-02] MEDS: SODIUM CHLORIDE 0.9% 1000 ML 1,000 ML 200 ML IV ×3 (11:45→23:16)
[2025-07-02] MEDS: HYDROmorphone 1 MG/ML PCA SYRINGE 30ML PCA (11:48)
--- NOTE | 2025-07-02 12:09 | SUR.PHASEI ---
1209: received report from RYLIE Graves. pt eyes closed but able to answer questions when ask. no s/s of resp. distress or discomfort. no s/s of pain or discomfort. dermabond x3 to lower abdomen clean, dry and intact. yolanda-pad placed, no bleeding noted. monroe cath in place intact.
--- NOTE | 2025-07-02 12:34 | SUR.PHASEI ---
1234: adbominal binder placed at this time.
--- NOTE | 2025-07-02 12:44 | SUR.PHASEI ---
1244: at the bedside. no s/s of pain or discomfort.
--- NOTE | 2025-07-02 14:16 | SUR.PHASEII ---
pt asleep but responds to voice, breathing unlabored on 2l nc. v/s stable. pt dressing to abd x3 cdi. monroe catheter in place. report called to Corrina YOUNGBLOOD. pt will be transferred to room at this time.
[2025-07-02] MEDS: Milk Of Magnesia Susp 30 ML UDC PO (15:06)
[2025-07-02] MEDS: ACETAMINOPHEN IVPB 1,000 MG/100 ML VIAL 250 MG IV ×2 (17:37→23:16)
--- NOTE | 2025-07-02 19:00 | PC.NURSE ---
Report received, pt current post op today, Dilaudid MANAGER HEART FAILURE in place, spouse at bedside, call light within reach.
[2025-07-03] VITALS (7 sets, daily range): BP systolic 93–111; BP diastolic 53–82; PULSE 55–81; RESP 15–97; TEMP 36.1–36.6; O2SAT 97–99
--- NOTE | 2025-07-03 00:26 | PC.NURSE ---
Report received, pt current post op today, Dilaudid LAMINATING MACHINE OPERATOR in place, spouse at bedside, call light within reach.
--- NOTE | 2025-07-03 01:57 | PC.NURSE ---
Pt called c/o abd pain, informed of WEB OPERATIONS MANAGER, pt pushed button, after pt had pushed button second time total dose given per WEB OPERATIONS MANAGER limits 0.8mg, pt c/o feeling dizzy, checked for bleeding and blood pressure 116/58 HR 55 no other complaints.
[2025-07-03] MEDS: ACETAMINOPHEN IVPB 1,000 MG/100 ML VIAL 250 MG IV (05:31)
[2025-07-03] MEDS: SODIUM CHLORIDE 0.9% 1000 ML 1,000 ML 200 ML IV (05:31)
[2025-07-03 06:02] LABS: Basophils # (Auto) 0.0 Thou/mm3 (0.0-0.2); Basophils % (Auto) 0 % (0-2.5); Eosinophils # (Auto) 0.0 Thou/mm3 (0.0-0.5); Eosinophils % (Auto) 0 % (0-10); Hematocrit 31.1 % (36.0-46.0); Hemoglobin 10.5 g/dL (12.0-16.0); Immature Granulocytes Auto 0.03 Thou/mm3 (0.00-0.00); Lymphocytes # (Auto) 1.5 Thou/mm3 (1.0-4.8); Lymphocytes % (Auto) 15 % (10-50); Mean Corpuscular HGB Conc 33.8 g/dl (31.0-37.0); Mean Corpuscular Hemoglobin 31.4 pg (25.0-35.0); Mean Corpuscular Volume 93 fL (80-100); Monocytes # (Auto) 0.7 Thou/mm3 (0.0-0.8); Monocytes % (Auto) 7 % (0-12); Neutrophils # (Auto) 7.4 Thou/mm3 (1.8-7.7); Neutrophils % (Auto) 77 % (37-80); Nucleated Red Blood Cell # 0.00 Thou/mm3 (0.00-0.00); Nucleated Red Blood Cell % 0 /100 WBC (0); Platelet Count 178 Thou/mm3 (140-440); RDW Standard Deviation 41.1 fL (36.4-46.3); Red Blood Count 3.34 Miln/mm3 (4.00-5.20); White Blood Count 9.6 Thou/mm3 (3.6-11.0)
[2025-07-03 06:28] LABS: Anion Gap 8 (7-16); BUN/Creatinine Ratio 12 Ratio (12-20); Blood Urea Nitrogen 7 mg/dL (9-23); Calcium 8.8 mg/dL (8.3-10.6); Carbon Dioxide 26.2 mMol/L (20.0-31.0); Chloride 109 mMol/L (98-107); Creatinine (Component) 0.6 mg/dL (0.6-1.3); Estimated Creatinine Clearance 107.3 mL/min (>60); Glucose 111 mg/dL (74-106); Osmolality,Calculated 283 (275-295); Potassium 4.2 mMol/L (3.4-5.1); Sodium 143 mMol/L (136-145); eGFR > 60 See Note
--- NOTE | 2025-07-03 08:43 | ESPR_ITS ---
Documentation for date of: 07/03/25 GRINDER OPERATOR SURFACE TOOL Subjective Subjective Interval history: Patient doing well this morning. Pain is adequately controlled on the current regimen. No incisional complaints, no chest pain, shortness of breath, breathing difficulties. Ambulating, tolerating p.o., Adequate UOP Exam Vital Signs Temp Pulse Resp BP Pulse Ox O2 Del Method O2 Flow Rate 97.2 F 58 L 18 93/60 99 Nasal Cannula 3 07/03/25 08:00 07/03/25 08:00 07/03/25 08:00 07/03/25 08:00 07/03/25 08:00 07/03/25 08:00 07/03/25 08:00 Constitutional Constitutional: no acute distress Routine HEENT Exam Head: Present normocephalic and atraumatic Eye: Present EOMI and PERRL ENT: Present mucous membranes moist Routine Neck Exam Neck: Present supple and trachea midline Routine Respiratory Exam Respiratory: Present chest non-tender, lungs clear, normal breath sounds and no resp distress Routine Cardiovascular Exam Cardiovascular: Present RRR Routine Abdominal Exam Abdominal: Present soft and normoactive bowel sounds Routine Extremities Exam Extremities: Present full ROM Routine Skin Exam Skin: Present intact and dry Routine Neurological Exam Neurological: Present alert, oriented X3 and CN II-XII intact Routine Psychiatric Exam Psychiatric: Present normal affect and normal thought process Urinary Catheter Management Cath placed during this visit: no GRINDER OPERATOR SURFACE TOOL - PN: Obj Data Labs 07/03/25 05:07 07/03/25 05:07 Labs: Laboratory Results - last 24 hr 07/03/25 05:07 WBC 9.6 RBC 3.34 L Hgb 10.5 L Hct 31.1 L MCV 93 MCH 31.4 MCHC 33.8 RDW Std Deviation 41.1 Plt Count 178 D Neut % (Auto) 77 Lymph % (Auto) 15 [place] % (Auto) 7 Eos % (Auto) 0 Baso % (Auto) 0 Neut # (Auto) 7.4 Lymph # (Auto) 1.5 [place] # (Auto) 0.7 Eos # (Auto) 0.0 Baso # (Auto) 0.0 Immature Gran # (Auto) 0.03 H Absolute Nucleated RBC 0.00 Immature Gran % 0 Nucleated RBC % 0 Sodium 143 Potassium 4.2 Chloride 109 H Carbon Dioxide 26.2 Anion Gap 8 BUN 7 L Creatinine 0.6 Estim Creat Clear Calc 107.3 eGFR > 60 BUN/Creatinine Ratio 12 Glucose 111 H Calculated Osmolality 283 Calcium 8.8 GRINDER OPERATOR SURFACE TOOL - A/P Assessment and plan (1) Abnormal uterine and vaginal bleeding, unspecified: Status: Acute (2) Intramural leiomyoma of uterus: Status: Acute (3) S/P laparoscopic hysterectomy: Status: Acute Assessment and plan: POD#1 1. Continue routine post operative care 2. Transition to PO meds. 3. Encourage to ambulate 4. Anticipate discharge home today. 5. Home care instructions reviewed Postoperative Procedures: Procedures Operation Date: 07/02/25 09:15 Actual Procedure Side Surgeon p Laparoscopic Assisted Vaginal Hysterectomy with Cystoscopy Dariusz Jewell MD Time Spent With Patient Time: Total time spent is greater than 50% in coordination of care (as documented) at patient's floor/unit and/or counseling patient: Time with patient: less than 15 minutes
[2025-07-03] MEDS: DOCUSATE SOD 100 MG CAPSULE PO (09:34)
[2025-07-03] MEDS: KETOROLAC INJ 30 MG/ML VIAL IVP ×2 (09:34→12:58)
--- NOTE | 2025-07-03 12:47 | PC.SS ---
Follow up note: Pt will d/c home today.
== END 2025-07-03 16:30 | disposition home or self-care (01) ==
LOC: S3SX 07-03 08:57
PROVIDERS: Anesthesiology; Admitting Provider Obstetrics & Gynecology; PCP Registered Nurse Community Health; Referring Provider Obstetrics & Gynecology; Visit Provider Obstetrics & Gynecology
PROC: 0UT94ZZ Resection of Uterus, Percutaneous Endoscopic Approach (ICD-10-PCS; CPT 58571; principal; 2025-07-02 09:00)
DX: N92.0 Excessive and frequent menstruation with regular cycle (principal); D25.1 Intramural leiomyoma of uterus
CPT/HCPCS: 58571; 36415; 80048; 80053; 81025; 84703; 85025; 86850; 86900; 86901; 96361; 96374; A4217; A4649; G0378; J0131; J0690; J1100; J1171; J1885; J2250; J2371; J2405; J2704; J3010; J3490; J7030; A9270; J1805

== ENCOUNTER 2025-07-06 00:42 | Emergency (ER) | payer MEDICAID, SELFPAY ==
[2025-07-06 01:07] VITALS: BP 131/88; PULSE 68; RESP 16; TEMP 36.6; O2SAT 100
[2025-07-06 01:42] LABS: Collection Type, Urine Clean Catch
[2025-07-06 01:57] LABS: Basophils # (Auto) 0.0 Thou/mm3 (0.0-0.2); Basophils % (Auto) 1 % (0-2.5); Eosinophils # (Auto) 0.1 Thou/mm3 (0.0-0.5); Eosinophils % (Auto) 2 % (0-10); Hematocrit 35.4 % (36.0-46.0); Hemoglobin 11.9 g/dL (12.0-16.0); Immature Granulocytes Auto 0.02 Thou/mm3 (0.00-0.00); Lymphocytes # (Auto) 3.3 Thou/mm3 (1.0-4.8); Lymphocytes % (Auto) 46 % (10-50); Mean Corpuscular HGB Conc 33.6 g/dl (31.0-37.0); Mean Corpuscular Hemoglobin 30.7 pg (25.0-35.0); Mean Corpuscular Volume 91 fL (80-100); Monocytes # (Auto) 0.5 Thou/mm3 (0.0-0.8); Monocytes % (Auto) 7 % (0-12); Neutrophils # (Auto) 3.2 Thou/mm3 (1.8-7.7); Neutrophils % (Auto) 45 % (37-80); Nucleated Red Blood Cell # 0.00 Thou/mm3 (0.00-0.00); Nucleated Red Blood Cell % 0 /100 WBC (0); Platelet Count 191 Thou/mm3 (140-440); RDW Standard Deviation 40.1 fL (36.4-46.3); Red Blood Count 3.88 Miln/mm3 (4.00-5.20); White Blood Count 7.1 Thou/mm3 (3.6-11.0)
[2025-07-06 02:02] LABS: HCG Qualitative,Urine Negative
[2025-07-06 02:04] LABS: Bilirubin,Urine Negative (Negative); Blood,Urine Negative (Negative); Clarity,Urine Clear (Clear/Hazy); Color,Urine Colorless (Lt Yel-Yel); Glucose, Urine Negative (Negative); Ketones,Urine Negative (Negative); Leukocyte Esterase,Urine Negative (Negative); Nitrite,Urine Negative (Negative); PH,Urine 6.5 (5.0-7.0); Protein,Urine Negative (Neg - Trace); RBC,Urine < 1 /hpf (0-3); Specific Gravity,Urine 1.005 (1.001-1.035); Squamous Epithelial Cell,Urine < 1 /hpf (0-5); Urobilinogen,Urine Negative mg/dL (0.0-1.0); WBC,Urine 1 /hpf (0-5)
[2025-07-06 02:16] LABS: Alanine Aminotransferase 20 U/L (10-49); Albumin, Serum 4.5 gm/dL (3.5-5.0); Albumin/Globulin Ratio 2.0 (1.2-2.2); Alkaline Phosphatase 55 U/L (46-116); Amylase 121 U/L (30-118); Anion Gap 9 (7-16); Aspartate Amino Transferase 25 U/L (0-34); BUN/Creatinine Ratio 9 Ratio (12-20); Bilirubin,Total 0.7 mg/dL (0.3-1.2); Blood Urea Nitrogen 7 mg/dL (9-23); Calcium 9.8 mg/dL (8.3-10.6); Calcium (Corrected) 9.8 mg/dL (8.5-10.1); Carbon Dioxide 26.8 mMol/L (20.0-31.0); Chloride 101 mMol/L (98-107); Creatinine (Component) 0.8 mg/dL (0.6-1.3); Globulin 2.3 gm/dL (2.3-3.5); Glucose 104 mg/dL (74-106); Osmolality,Calculated 271 (275-295); Potassium 4.0 mMol/L (3.4-5.1); Sodium 137 mMol/L (136-145); Total Protein 6.8 gm/dL (5.7-8.2); eGFR > 60 See Note
--- NOTE | 2025-07-06 04:47 | PC.NURSE ---
PT WAS TAKEN TO CT BUT UNABLE TO DO IT BECAUSE THE MACHINE IS ACTING UP, MANDOLIN REPAIRER INFORMED PT THAT HE WILL COMEBACK TO GET HIM FROM ER LOBBY WHEN MACHINE IS WORKING RIGHT. MANDOLIN REPAIRER CAME TO GET PT BUT PT NOT IN THE ER LOBBY NO MORE AND NOT OUTSIDE ER.
--- NOTE | 2025-07-06 05:23 | PD.EDRME ---
Rapid Medical Screening Exam RME Arrival date/time: 07/06/25 00:42 This is a case of 49-year-old female with no medical history came in in the emergency room due to abdominal pain painful urination and vaginal pain patient had total hysterectomy left July 02, 2025 patient was fine upon discharge until today patient noted to have pain on the abdomen and vaginal with painful urination urgency and increased frequency patient also had fever and chills no nausea no vomiting Chief Complaint: General Adult/Misc Complain Time Seen by Provider: 07/06/25 01:00 Vital signs: Vital Signs Temperature 97.9 F 07/06/25 01:07 Pulse Rate 68 07/06/25 01:07 Respiratory Rate 16 07/06/25 01:07 Blood Pressure 131/88 H 07/06/25 01:07 Pulse Oximetry (%) 100 07/06/25 01:07 Oxygen Delivery Method Room Air 07/06/25 01:07
== END 2025-07-06 04:50 | disposition left against medical advice (07) ==
PROVIDERS: Nurse Practitioner Family; Emergency Provider Family Medicine; PCP Registered Nurse Community Health
DX: R10.9 Unspecified abdominal pain (principal); R10.2 Pelvic and perineal pain; R30.9 Painful micturition, unspecified; R39.15 Urgency of urination; R35.0 Frequency of micturition; R50.9 Fever, unspecified; Z90.710 Acquired absence of both cervix and uterus; Z53.29 Procedure and treatment not carried out because of patient's decision for other reasons
CPT/HCPCS: 36415; 80053; 81001; 81025; 82150; 85025; 99283

== ENCOUNTER 2025-07-21 08:38 | Outpatient (AMB) | payer MEDICAID, SELFPAY ==
--- NOTE | 2025-07-21 08:59 | AMB.GYNCLNOT ---
Vital Signs 07/21/25 09:02 Height 1.52 m Height Method Stated Weight 60.328 kg Weight Measurement Method Standing Scale BMI 25.9 BP 109/71 Blood Pressure Source Automatic Cuff Blood Pressure Location Right Upper Arm Position Sitting Respiration 17 Pulse 69 Pulse Source Monitor Temp 97.7 F Temp Source Temporal Artery Scan Pulse Oximetry (%) 98 Allergies/Home Meds Allergies & Medications Allergies No Known Allergies Allergy (Verified 07/21/25 09:05) Medication Reconciliation clonazepam 2 mg tablet 2 mg PO HS 06/19/25 [History Confirmed 07/21/25] Intake Visit Data Collection New Patient or Established: Established Patient (seen at [facility] within 3 years) Reason for Visit:: POST OP Seen by Clinical Staff ONLY (RN/MA): No Air Tucker Required: Yes Air Tucker's name/title: VINAY SAWYER MA Do You Feel Safe at Home: Yes Authorities Contacted: N/A PCP or OBGYN visit in last 3 months: Yes Date of Last PCP or OBGYN visit: 07/06/25 Hx Now: No Are you currently on any form of Control: No Pain Present Currently: No Pain Scale Used: Galvez-Mohan/Numerical Pain scale:: 0 Smoking Status Smoking Status: Never smoker 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 Age at menarche: 14 Currently sexually active: No If not currently sexually active, have you ever been 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 1. Little interest or pleasure in doing things: not at all 2. Feeling down, depressed, or hopeless: not at all Total score: 0 PHQ-9 3. Trouble falling or staying asleep, or sleeping too much: Not at all 4. Feeling tired or having little energy: Not at all 5. Poor appetite or overeating: Not at all 6. Feeling bad about yourself - or that you are a failure or have let yourself or your family down: Not at all 7. Trouble concentrating on things, such as reading the newspaper or watching television: Not at all 8. Moving or speaking so slowly that other people could have noticed? - Or the opposite - being so fidgety or restless that you have been moving around a lot more than usual: not at all 9. Thoughts that you would be better off or of hurting yourself in some way: Not at all Total score: 0 If you checked off any problems, how difficult have these problems made it for you to do your work, take care of things at home, or get along with other people?: not difficult at all Source: Developed by Drs. Dom Marie, Ramandeep Tong, Isaias Clark and colleagues, with an educational ramiro from [employer]. Depression screen completed yes Social History Living Situation History Marital Status: Lives With: Family Housing: House Tobacco History Smoking Status: Never smoker Second Hand Smoke Exposure: No Alcohol History Alcohol Intake: Never Domestic Abuse History Do You Feel Safe at Home: Yes History of Present Illness HPI Narrative Lillian Jerome presents for a postoperative visit approximately 3 weeks following total laparoscopic hysterectomy performed on July 02, 2025. She had an emergency department visit on July 06, which was 3?4 days post-operatively, for a urinary tract infection that has since resolved. She reports no current constipation or other issues. She states that everything feels good and her incisions have healed well. She continues to experience some bleeding, spotting, and discharge, which she understands to be normal during her recovery period. She has a history of total laparoscopic hysterectomy on July 02, 2025. The patient has two daughters. ROS: Gastrointestinal: Negative for constipation. Genitourinary: Positive for vaginal bleeding/spotting and discharge. Exam Narrative Physical exam: Abdominal: Incisions have healed. Skin glue present at incision sites - one central incision and two lateral incisions. General General Appearance: alert, in no apparent distress and healthy appearing Head Head exam: atraumatic Neck Neck exam: Present normal inspection and trachea midline Chest Chest inspection: Present normal inspection and symmetric chest wall rise External exam: Present normal external exam; Absent tenderness Neuro Neurological exam: Present oriented X3 Psych Psychiatric exam: Present normal affect and normal mood Office Procedures OBC Clinic LOC & Office Proc's Nursing/Assessment Patient Status: Established Patient OB Clinic Nursing Assessment: Medication Reconciliation, Update PMH in EMR and Vital Signs OB Clinic Coordination of Care: Complex Care and Chronic Disease 1-5, Education Complex Pt/Fam, Consent,records obtained, informed consent, Results/Orders obtained and Staff clarify orders Established Patient Charge Established Patient Point Assignment: 95 Established Patient Point Charge: EP Level 3 (80-115) Assessment & Plan Diagnosis / Problem List (1) S/P laparoscopic hysterectomy: Status: Acute (2) Abnormal uterine and vaginal bleeding, unspecified: Status: Acute Plan Postoperative status post total laparoscopic hysterectomy: - Patient is 3 weeks post-op from total laparoscopic hysterectomy performed on 07/02/2025. - Presented to ER on 07/06/2025 with urinary tract infection, which has been treated and resolved. - Well-healed incisions with skin glue still in place. - No reported issues with constipation or other postoperative complications. Plan: - Remove skin glue from incisions during shower. - Gradually increase activity level and return to normal daily activities. - May drive and go to stores. - Avoid lifting more than 20 pounds. - Abstain from sexual intercourse until 2 months post-surgery. - Wear supportive belt only if traveling more than one hour by car or standing for more than one hour. - Expect some normal bleeding, spotting, and discharge for up to 2 months post-surgery. - Follow-up appointment in 1 month with pelvic examination.
[2025-07-21 09:02] VITALS: BP 109/71; PULSE 69; RESP 17; TEMP 36.5; O2SAT 98; BMI 25.9
== END 2025-07-21 09:28 | disposition home or self-care (01) ==
LOC: HODSOBC 08:38
PROVIDERS: Supervising Provider Obstetrics & Gynecology; Visit Provider Obstetrics & Gynecology
DX: Z48.816 Encounter for surgical aftercare following surgery on the genitourinary system (principal); N93.9 Abnormal uterine and vaginal bleeding, unspecified; Z90.710 Acquired absence of both cervix and uterus
CPT/HCPCS: 99213; G0463

== ENCOUNTER 2025-09-15 08:36 | Outpatient (AMB) | payer MEDICAID, SELFPAY ==
[2025-09-15 09:01] VITALS: BP 117/78; PULSE 75; RESP 16; TEMP 36.4; O2SAT 98; BMI 26.9
--- NOTE | 2025-09-15 09:01 | GYNCLNT_ITS ---
Vital Signs 09/15/25 09:01 Height 1.52 m Height Method Stated Weight 62.142 kg Weight Measurement Method Standing Scale BMI 26.9 BP 117/78 Blood Pressure Source Automatic Cuff Blood Pressure Location Left Upper Arm Position Sitting Respiration 16 Pulse 75 Pulse Source Monitor Temp 97.6 F Temp Source Oral Pulse Oximetry (%) 98 Oxygen Delivery Method Room Air Allergies/Home Meds Allergies & Medications Allergies No Known Allergies Allergy (Verified 09/15/25 09:04) Medication Reconciliation clonazepam 2 mg tablet 2 mg PO HS 06/19/25 [History Confirmed 09/15/25] Intake Visit Data Collection New Patient or Established: Established Patient (seen at [facility] within 3 years) Reason for Visit:: POST OP VAGINAL EXAM Seen by Clinical Staff ONLY (RN/MA): No 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 Do You Feel Safe at Home: Yes Authorities Contacted: N/A PCP or OBGYN visit in last 3 months: Yes Hx Now: No Are you currently on any form of Control: No Last menstrual period: 05/31/25 Pain Present Currently: No Pain Scale Used: Galvez-Mohan/Numerical Pain scale:: 0 Smoking Status Smoking Status: Never smoker Immunizations Flu Vaccine in the Last 12 Months: Yes Flu Vaccine Exclusion Criteria: Already Received Oncology Specialist history Oncology Specialist History Menstrual regularity: regular Flow: normal Monthly: Yes How many days does period last: 4 Age at menarche: 14 Currently sexually active: No If not currently sexually active, 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 1. Little interest or pleasure in doing things: not at all 2. Feeling down, depressed, or hopeless: not at all Total score: 0 PHQ-9 3. Trouble falling or staying asleep, or sleeping too much: Not at all 4. Feeling tired or having little energy: Not at all 5. Poor appetite or overeating: Not at all 6. Feeling bad about yourself - or that you are a failure or have let yourself or your family down: Not at all 7. Trouble concentrating on things, such as reading the newspaper or watching te levision: Not at all 8. Moving or speaking so slowly that other people could have noticed? - Or the opposite - being so fidgety or restless that you have been moving around a lot more than usual: not at all 9. Thoughts that you would be better off or of hurting yourself in some way: Not at all Total score: 0 Source: Developed by Drs. Dmo Marie, Ramandeep Tong, Isaias Clark and colleagues, with an educational ramiro from [employer]. Depression screen completed yes Social History Living Situation History Lives With: Family Housing: House Tobacco History Smoking Status: Never smoker Second Hand Smoke Exposure: No Alcohol History Alcohol Intake: Never Domestic Abuse History Do You Feel Safe at Home: Yes History of Present Illness HPI Narrative Lillian Jerome presents for a post-operative visit following total laparoscopic hysterectomy performed on July 02, 2025. The patient reports that she has resumed all normal activities without restrictions. She denies any complications or concerns related to her surgical recovery. The patient had questions regarding her pathology results and was reassured that everything was negative with no cancer found. She has a history of total laparoscopic hysterectomy on July 02, 2025. 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 Exam Narrative Physical exam: - Gynecologic: Post-surgical site completely healed with all sutures absorbed and no longer visible. Office Procedures OBC Clinic LOC & Office Proc's Nursing/Assessment Patient Status: Established Patient OB Clinic Nursing Assessment: Medication Reconciliation, Update PMH in EMR and Vital Signs OB Clinic Coordination of Care: Complex Care and Chronic Disease 1-5, Consent,records obtained, informed consent, Education Simp Pt/Fam, Lab and Imaging orders, Results/Orders obtained and Staff clarify orders Miscellaneous Interventions: Pelvic no cultures Established Patient Charge Established Patient Point Assignment: 115 Established Patient Point Charge: EP Level 3 (80-115) Assessment & Plan Diagnosis / Problem List (1) S/P laparoscopic hysterectomy: Status: Acute (2) Other specified postprocedural states: Status: Acute Plan Post-operative status total laparoscopic hysterectomy: - Patient is approximately 2.5 months post total laparoscopic hysterectomy performed on July 02, 2025. - Physical examination reveals complete healing with all sutures absorbed and no complications noted. - Patient has resumed normal activities without restrictions. Plan: - Clear patient for all normal activities including sexual intercourse and exercise with no restrictions. - Follow-up visit scheduled in 6 months to 1 year to assess ongoing status. - No further immediate follow-up required.
== END 2025-09-15 10:27 | disposition home or self-care (01) ==
LOC: HODSOBC 08:36
PROVIDERS: Supervising Provider Obstetrics & Gynecology; Visit Provider Obstetrics & Gynecology
DX: Z48.816 Encounter for surgical aftercare following surgery on the genitourinary system (principal); Z90.710 Acquired absence of both cervix and uterus
CPT/HCPCS: 99213; G0463